=== PATIENT | female | born 2000 | race Caucasian/White ===

== ENCOUNTER → 2020-07-24 11:58 | Outpatient (CLI) | payer OTHER, SELFPAY ==
[2020-07-24 23:24] LABS: SARS-CoV-2 RNA PCR Negative
== END ==
PROVIDERS: PCP Pediatrics; Visit Provider Pediatrics
DX: R68.89 Other general symptoms and signs (principal); Z20.822 Contact with and (suspected) exposure to COVID-19
CPT/HCPCS: C9803; U0003; U0005

== ENCOUNTER → 2021-01-03 18:23 | Outpatient (CLI) | payer OTHER, SELFPAY ==
--- NOTE | ~2021-01-03 | XR_ITS ---
EXAMINATION: XR sacroiliac joints min 3V EXAM DATE: 01/03/2021 19:16 INDICATION: Pain for 3 weeks after falling downstairs. TECHNIQUE: Sacroiliac frontal, bilateral oblique projections. There are no prior studies for compari son. FINDINGS: Sacroiliac and hip joints are symmetric and without erosive change or sclerosis. Sacrum, sa croiliac joints, sacral arcuate lines are intact. There are no acute fractures identified. IMPRESSION: Unremarkable sacroiliac joint exam. Reviewed, dictated and finalized at location G.
== END ==
PROVIDERS: PCP Pediatrics; Visit Provider Pediatrics
DX: M53.3 Sacrococcygeal disorders, not elsewhere classified (principal)
CPT/HCPCS: 72202

== ENCOUNTER 2021-07-09 10:22 | Emergency (ER) | payer OTHER, SELFPAY ==
[2021-07-09 10:43] VITALS: BP 134/85; PULSE 98; RESP 18; TEMP 36.2; O2SAT 99
--- NOTE | 2021-07-09 11:00 | ED.URI ---
HPI - URI/Sore Throat General Chief Complaint: Upper Respiratory Infection Stated Complaint: Sinus History of Present Illness HPI Narrative: This is a 21 year old that comes in complaining of stuffiness for the past two day. According to patient she gets a sinus infection every year. Patient states she has started to take Mucinex DM and it is not working Related Data Home Medications Medication Instructions Recorded Confirmed levonorgestrel-ethinyl estrad 1 tablet DAILY 07/10/19 07/10/19 [Vienva] Allergies Allergy/AdvReac Type Severity Reaction Status Date / Time No Known Allergies Allergy Unknown Verified 07/10/19 10:19 Review of Systems Review of Systems: nasal stuffiness and pressure in the frontal nare All systems reviewed & are unremarkable except as noted in HPI and below PMFSH Past Medical History Medical History (Updated 07/09/21 @ 11:04 by Cristina Zavaleta, RAMON) Asthma Surgical History Surgical History (Updated 07/10/19 @ 10:50 by Loulou Mccauley, [employer]) Hx of tympanostomy tubes Family History Family History Father Family history of hypercholesterolemia Depression Hypertension Family history of alcoholism Social History Social History (Updated 07/10/19 @ 10:51 by Loulou Mccauley, [employer]) Smoking status: Never smoker Alcohol intake: never Substance use: never Gender identity (if verbalized by the patient): Female Comments At time as signature, I have reviewed and agree with nursing past medical, social, surgical and family history. Please see nursing chart for further information. There is no relevant family history pertinent to the presenting complaint. Exam Narrative: GENERAL:Well-appearing, well-nourished, and in no acute distress. HEAD:Normocephalic, EYES: PERRLA and EOMI. ENT: Nares clear, no rhinorrhea Mucous membranes moist. CHEST: Clear to auscultation. No respiratory distress. HEART: Regular rate and rhythm. Normal peripheral pulses. ABDOMEN: Soft, nontender, nondistended, normal active bowel sounds. EXTREMITIES: Normal range of motion. No edema. SKIN: Warm, dry, no rash. NEURO: No focal deficits. Alert and oriented x3. Course Course Level of Care: Express Care Visit Vital Signs Vital signs: Vital Signs Temperature 97.2 F L 07/09/21 10:43 Pulse Rate 98 07/09/21 10:43 Respiratory Rate 18 07/09/21 10:43 Blood Pressure 134/85 07/09/21 10:43 Pulse Oximetry 99 07/09/21 10:43 Temperature 97.2 F L 07/09/21 10:43 Pulse Rate 98 07/09/21 10:43 Respiratory Rate 18 07/09/21 10:43 Blood Pressure 134/85 07/09/21 10:43 Pulse Oximetry 99 07/09/21 10:43 MDM - URI/Sore Throat Differential Diagnosis Differential diagnosis: Likely upper respiratory infection, otitis media, sinusitis, viral infection, bronchitis, influenza and pharyngitis Discharge Plan Discharge Clinical Impression: Sinusitis Qualifiers: Sinusitis location: unspecified location Chronicity: acute Recurrence: recurrent Qualified Code(s): J01.91 - Acute recurrent sinusitis, unspecified Patient Disposition: Home, Self-Care Condition: Stable Instructions: Antibiotic Form, Rhinosinusitis (ED), Allergies (ED) Additional Instructions: Viral illness may last between 7-12days; antibiotic is NOT recommended at this time. Recommend antihistamine such as Benadryl at night time and Claritin/Zyrtec/Phyllis during the day Also, recommend symptomatic treatment includes: rest, fluids, and increase humidity of the air at home. Recommend Acetaminophen or nonsteroidal anti-inflammatory agents (NSAIDs) as directed in the bottle to reduce fever and/pain/headache. Avoid smoking/second-hand smoke. Limit visits to areas with large crowds. Please schedule a follow-up visit with your personal physician for further evaluation and treatment within 3-5days. Including recheck and discussion of your blood pressure. If yo
== END 2021-07-09 11:07 | disposition home or self-care (01) ==
PROVIDERS: Emergency Provider Nurse Practitioner Family; PCP Pediatrics
DX: J01.91 Acute recurrent sinusitis, unspecified (principal); J45.909 Unspecified asthma, uncomplicated
CPT/HCPCS: 99213; G0463

== ENCOUNTER 2022-02-05 17:15 | Emergency (ER) | payer OTHER, SELFPAY ==
[2022-02-05 17:27] VITALS: BP 119/72; PULSE 87; RESP 18; TEMP 36.4; O2SAT 99
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
== END 2022-02-05 18:03 | disposition home or self-care (01) ==
PROVIDERS: Emergency Provider Nurse Practitioner Family; PCP Pediatrics
DX: S16.1XXA Strain of muscle, fascia and tendon at neck level, initial encounter (principal); V43.52XA Car driver injured in collision with other type car in traffic accident, initial encounter; J45.909 Unspecified asthma, uncomplicated
CPT/HCPCS: 99212; G0463

== ENCOUNTER 2022-03-01 17:11 | Emergency (ER) | payer OTHER, SELFPAY ==
[2022-03-01 17:18] VITALS: BP 127/73; PULSE 91; RESP 16; TEMP 36.7; O2SAT 99
--- NOTE | 2022-03-01 17:21 | ED.URI ---
HPI - URI/Sore Throat General Chief Complaint: Upper Respiratory Infection Stated Complaint: congestion,headache,cough Time Seen by Provider: 03/01/22 17:21 History of Present Illness HPI Narrative: Melissa Main is a 21 yo female with PMH of asthma who comes to [facility] with complaints of sore throat resolved and cough, congestion x3 day. She has been complained at multiple visits about sinus symptoms and also has seen an ENT doctor (Sis) or his partner in the past 2 years, for her ears and in for sinus pain and drainage. Patient had original 2 [employer] vaccines Related Data Home Medications Medication Instructions Recorded Confirmed levonorgestrel-ethinyl estradiol 1 tablet DAILY 02/05/22 03/01/22 0.1 mg-20 mcg tablet (Vienva) Allergies Allergy/AdvReac Type Severity Reaction Status Date / Time No Known Allergies Allergy Unknown Verified 03/01/22 17:28 Review of Systems Review of Systems: CONSTITUTIONAL: Denies fever, chills, sweats. EYES: Denies visual changes, redness, discharge. ENT: Denies rhinorrhea, has congestion, sore throat, otalgia. CARDIOVASCULAR: Denies chest pain, palpitations, edema. RESPIRATORY: Denies dyspnea, wheezing, has cough GASTROINTESTINAL: Denies abdominal pain, nausea, vomiting, diarrhea. GENITOURINARY: Denies dysuria, hematuria, abnormal discharge SKIN: Denies rash or itching. NEUROLOGIC: Denies numbness, or focal weakness. PSYCHIATRIC: Denies anxiety or depression. [facility] Past Medical History Medical History Asthma Surgical History Surgical History Hx of tympanostomy tubes Family History Family History Father Family history of hypercholesterolemia Depression Hypertension Family history of alcoholism Social History Social History Smoking status: Never smoker Alcohol intake: never Substance use: never Gender identity (if verbalized by the patient): Female Comments At time of signature, I agree with nursing past medical, surgical, social and family history. There is no relevant family history pertinent to the presenting complaint. Exam Narrative: GENERAL: This is a well-nourished, well-developed patient, in mild distress. HEAD: normocephalic, atraumatic. EYES: Sclera clear/white. Vision is grossly intact. EARS: External ears normal, auditory canals clear and without drainage, TMs normal without perforation. Hearing grossly intact. NOSE: External nose normal without nasal discharge, nares without redness, no rhinorrhea. Mild ethmoid and upper maxilla tenderness THROAT: Mucous membranes moist, posterior pharynx erythema NECK: Neck supple, non-tender CARDIOVASCULAR: Regular rate and rhythm without murmurs, gallops, or rubs. RESPIRATORY: Clear to auscultation. Breath sounds equal bilaterally. No wheezes, rales, or rhonchi. GASTROINTESTINAL: Not done SKIN: warm, intact with no suspicious lesions or rash, good texture and turgor. NEURO: awake, alert, and oriented to person, place and time. There were no obvious focal neurologic abnormalities. Steady gait EXTREMITIES: Normal range of motion. BACK: Nontender without deformity Course Course Emergency Course: Patient comes with congestion, sinus pain x3 days; sore throat has resolved. Patient had original COVID vaccines. No boosters Strep test negative COVID test negative Started on prednisone and Phyllis, increase hydration Level of Care: Express Care Visit Vital Signs Vital signs: Vital Signs Temperature 98.0 F 03/01/22 17:18 Pulse Rate 91 03/01/22 17:18 Respiratory Rate 16 03/01/22 17:18 Blood Pressure 127/73 03/01/22 17:18 Pulse Oximetry 99 03/01/22 17:18 Oxygen Delivery Room Air 03/01/22 17:18 Temperature 98.0 F 03/01/22 17:18 Pulse Rate
== END 2022-03-01 18:00 | disposition home or self-care (01) ==
PROVIDERS: Emergency Provider Nurse Practitioner; PCP Pediatrics
DX: J01.21 Acute recurrent ethmoidal sinusitis (principal); J45.909 Unspecified asthma, uncomplicated; Z20.822 Contact with and (suspected) exposure to COVID-19
CPT/HCPCS: 87081; 87426; 87880; 99213; C9803; G0463

== ENCOUNTER 2022-05-01 14:14 | Emergency (ER) | payer OTHER, SELFPAY ==
[2022-05-01 14:22] VITALS: BP 124/85; PULSE 130; RESP 18; TEMP 36.8; O2SAT 100
--- NOTE | 2022-05-01 15:01 | ED.URI ---
HPI - URI/Sore Throat General Chief Complaint: Upper Respiratory Infection Stated Complaint: Headache,Cough,Sore Throat,Body Aches Time Seen by Provider: 05/01/22 14:55 Source: patient Mode of arrival: ambulatory Limitations: no limitations History of Present Illness HPI Narrative: Patient presents today complaining of headache, cough, sore throat, body aches, chills. Symptoms began this morning. Denies any shortness of breath or fever. She currently rates her pain 7/10 and has tried no [id number] treatment prior to arrival. Denies any history of asthma. She is a nonsmoker. Works at a [employer]. Related Data Home Medications Medication Instructions Recorded Confirmed levonorgestrel-ethinyl estradiol 1 tablet DAILY 02/05/22 05/01/22 0.1 mg-20 mcg tablet (Vienva) Allergies Allergy/AdvReac Type Severity Reaction Status Date / Time No Known Allergies Allergy Unknown Verified 05/01/22 14:34 Review of Systems Review of Systems: CONSTITUTIONAL: Denies fever, or sweats.+ body aches, chills EYES: Denies visual changes, redness, or discharge. ENT: Denies rhinorrhea, congestion, or otalgia.+ sore throat CARDIOVASCULAR: Denies chest pain, palpitations, or edema. RESPIRATORY: Denies dyspnea.+ cough GASTROINTESTINAL: Denies abdominal pain, nausea, vomiting, or diarrhea. GENITOURINARY: Denies dysuria or hematuria. SKIN: Denies rash, itching, or wounds. MUSCULOSKELETAL: Denies back pain, joint pain, or myalgia. NEUROLOGIC: Denies numbness, tingling, or weakness.+ headache PSYCH: Denies depression or anxiety. [facility] Past Medical History Medical History Asthma Surgical History Surgical History Hx of tympanostomy tubes Family History Family History Father Family history of hypercholesterolemia Depression Hypertension Family history of alcoholism Social History Social History Smoking status: Never smoker Alcohol intake: never Substance use: never Gender identity (if verbalized by the patient): Female Comments At time of signature, I have reviewed and agree with nursing past medical, surgical, social and family history unless otherwise noted. Please see nursing chart for further information. There is no relevant family history pertinent to the presenting complaint Exam Narrative: GENERAL: Mildly ill-appearing, well-nourished, and in no acute distress. HEAD: Normocephalic, atraumatic. EYES: EOMI. No redness or drainage. Conjunctivae normal. ENT: Mucous membranes pink and moist. Nares congested.. No rhinorrhea. TMs normal bilaterally. Throat mildly erythematous without edema or exudate. Small amount of postnasal drainage. Uvula midline. NECK: Normal AROM. Supple. No lymphadenopathy. CHEST: No respiratory distress. Clear to auscultation. HEART: Regular rate and rhythm. No murmur appreciated. Normal peripheral pulses. EXTREMITIES: Normal range of motion. No edema. SKIN: Warm, dry, no rash. Capillary refill normal. Normal skin turgor. NEURO: No focal deficits. Alert and oriented x3. Gait steady. PSYCH: Normal affect. No signs of depression or anxiety. Course Course Level of Care: Express Care Visit Vital Signs Vital signs: Vital Signs Temperature 98.2 F 05/01/22 14:22 Pulse Rate 130 H 05/01/22 14:22 Respiratory Rate 18 05/01/22 14:22 Blood Pressure 124/85 05/01/22 14:22 Pulse Oximetry 100 05/01/22 14:22 Oxygen Delivery Room Air 05/01/22 14:22 Temperature 98.2 F 05/01/22 14:22 Pulse Rate 130 H 05/01/22 14:22 Respiratory Rate 18 05/01/22 14:22 Blood Pressure 124/85 05/01/22 14:22 Pulse Oximetry 100 05/01/22 14:22 Oxygen Delivery Room Air 05/01/22 14:22 Reviewed. Pt has been instructed to follow
[2022-05-01 15:15] VITALS: PULSE 120
== END 2022-05-01 15:15 | disposition home or self-care (01) ==
PROVIDERS: Emergency Provider Nurse Practitioner; PCP Pediatrics
DX: J06.9 Acute upper respiratory infection, unspecified (principal); Z20.822 Contact with and (suspected) exposure to COVID-19; J45.909 Unspecified asthma, uncomplicated
CPT/HCPCS: 87081; 87426; 87804; 87880; 99213; C9803; G0463

== ENCOUNTER 2022-08-03 07:20 | Emergency (ER) | payer OTHER, SELFPAY ==
[2022-08-03 07:37] VITALS: BP 108/70; PULSE 91; RESP 18; TEMP 36.7; O2SAT 100
[2022-08-03] MEDS: SODIUM CHLORIDE 0.9% IV 1,000 ML 999 ML IV CONT (08:06)
[2022-08-03] MEDS: ONDANSETRON INJ 4 MG/2 ML VIAL IV PUSH (08:07)
[2022-08-03 08:15] LABS: Basophils Percent Auto 0.3 % (0.2-1.2); Eosinophils Absolute Auto 0.2 K/mm3 (0-0.3); Eosinophils Percent Auto 1.4 % (0-4.4); Hematocrit 43.6 % (37.0-47.0); Hemoglobin 14.1 g/dL (12.0-15.0); Immature Granulocyte Absolute 0.04 K/mm3 (0.00-0.031); Immature Granulocyte Percent A 0.4 % (0-0.5); Lymphocytes Absolute Auto 1.28 K/mm3 (0.9-3.2); Lymphocytes Percent Auto 11.5 % (18.3-44.2); Mean Corpuscular HGB Conc 32.3 g/dl (32-36); Mean Corpuscular Hemoglobin 25.4 pg (26-34); Mean Corpuscular Volume 78.6 fl (80-100); Mean Platelet Volume 10.3 fl (7.4-10.4); Monocytes Absolute Auto 0.8 K/mm3 (0.1-0.6); Monocytes Percent Auto 7.2 % (2.6-8.5); Neutrophils Absolute Auto 8.8 K/mm3 (1.3-6.7); Neutrophils Percent Auto 79.2 % (45.5-73.1); Platelet Count Result 242 k/mm3 (150-375); Red Blood Count 5.55 M/mm3 (4.2-5.4); White Blood Count 11.1 K/mm3 (4.5-10.0)
[2022-08-03 08:28] LABS: Alanine Aminotransferase 22 U/L (6-35); Albumin Level 4.8 g/dL (3.5-5.1); Alkaline Phosphatase 83 U/L (38-126); Anion Gap 8 mmol/L (8-16); Aspartate Amino Transferase 25 U/L (14-36); Bilirubin,Total 0.8 mg/dL (0.2-1.3); Blood Urea Nitrogen 11 mg/dL (7-17); Calcium 9.3 mg/dL (8.4-10.2); Carbon Dioxide 24 mmol/L (22-30); Chloride 104 mmol/L (98-107); Estimated CRCL calculation 121 ml/min; Estimated Glomerular Filt Rate > 60; Glucose 107 mg/dL (65-110); Lipase 55 U/L (23-300); Potassium 4.1 mmol/L (3.4-5.0); Sodium 136 mmol/L (137-145)
--- NOTE | 2022-08-03 09:06 | ED.NAVMDI ---
HPI - Nausea/Vomiting/Diarrhea General Chief complaint: Nausea/Vomiting/Diarrhea Stated complaint: Diarrhea, Weakness Time Seen by Provider: 08/03/22 07:31 History of Present Illness HPI Narrative: Patient is a 22-year-old female who presents ER with diarrhea. Woke up this morning had 2 episodes of diarrhea and 2 episodes of emesis. No pain in her abdomen. No fevers or chills or sweats. No loss of consciousness. Has persistent nausea at this time. 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 Patient did have some lightheadedness. Related Data Home Medications Medication Instructions Recorded Confirmed levonorgestrel-ethinyl estradiol 1 tablet DAILY 02/05/22 05/01/22 0.1 mg-20 mcg tablet (Vienva) Allergies Allergy/AdvReac Type Severity Reaction Status Date / Time No Known Allergies Allergy Unknown Verified 08/03/22 07:40 Review of Systems Review of Systems: All systems reviewed & are unremarkable except as noted in HPI and below Constitutional: Constitutional: Denies chills, Denies fatigue and Denies fever(s) Cardiovascular: Cardiovascular: Denies chest pain, Denies rapid heart rate and Denies radiating jaw, neck or arm pain Respiratory: Respiratory: Denies cough and Denies dyspnea Gastrointestinal: Gastrointestinal: Denies abdominal pain, Reports diarrhea, Reports nausea and Reports vomiting PMFSH Past Medical History Medical History Asthma Surgical History Surgical History Hx of tympanostomy tubes Family History Family History Father Family history of hypercholesterolemia Depression Hypertension Family history of alcoholism Social History Social History Smoking status: Never smoker Alcohol intake: never Substance use: never Living arrangements: with family Occupation/Education: occupation Gender identity (if verbalized by the patient): Female Exam Narrative: GENERAL: Well-appearing, well-nourished, and in no acute distress. HEAD: Normocephalic, atraumatic. CHEST: Clear to auscultation. No respiratory distress. HEART: Regular rate and rhythm. Normal peripheral pulses. ABDOMEN: Soft, nontender, nondistended. EXTREMITIES: Normal range of motion. No edema. SKIN: Warm, dry, no rash. NEURO: Alert and oriented x3. PSYCH: Normal mood and affect. Course Course Emergency Course: Patient resting comfortably. Abdomen soft nontender. Lab work reassuring, white count 11.1 which is nonspecific. Tolerating oral fluids and nausea is gone. Vital Signs Vital signs: Vital Signs Temperature 98.1 F 08/03/22 07:37 Pulse Rate 91 08/03/22 07:37 Respiratory Rate 18 08/03/22 07:37 Blood Pressure 108/70 08/03/22 07:37 Pulse Oximetry 100 08/03/22 07:37 Oxygen Delivery Room Air 08/03/22 07:37 Temperature 98.1 F 08/03/22 07:37 Pulse Rate 91 08/03/22 07:37 Respiratory Rate 18 08/03/22 07:37 Blood Pressure 108/70 08/03/22 07:37 Pulse Oximetry 100 08/03/22 07:37 Oxygen Delivery Room Air 08/03/22 07:37 MDM - Nausea/Vomiting/Diarrhea Lab Data 08/03/22 08:08 08/03/22 08:08 Labs: Lab Results 08/03/22 08/03/22 Range/Units 08:08 08:08 WBC 11.1 H (4.5-10.0) K/mm3 RBC 5.55 H (4.2-5.4) M/mm3 Hgb 14.1 (12.0-15.0) g/dL Hct 43.6 (37.0-47.0) % MCV 78.6 L (80-100) fl MCH 25.4 L (26-34) pg MCHC 32.3 (32-36) g/dl RDW 14.0 (11.5-14.5) % Plt Count 242 (150-375) k/mm3 MPV 10.3 (7.4-10.4) fl Immature Gran % (Auto) 0.4 (0-0.5) % Neut % (Auto) 79.2 H (45.5-73.1) % Lymph % (Auto) 11.5 L (18.3-44.2) % Randolph % (Auto) 7.2 (2.6-8.5) % Eos % (Auto) 1.4 (0-4.4) % Baso % (Auto) 0.3 (0.2-1.2) % Lymph # (Auto) 1.28 (0
[2022-08-03 09:22] VITALS: BP 121/76; PULSE 79; RESP 15; O2SAT 100
== END 2022-08-03 09:24 | disposition home or self-care (01) ==
PROVIDERS: Emergency Provider Emergency Medicine; PCP Pediatrics
DX: K52.9 Noninfective gastroenteritis and colitis, unspecified (principal); J45.909 Unspecified asthma, uncomplicated
CPT/HCPCS: 36415; 80053; 81025; 83690; 85025; 96361; 96374; 99284; J2405; J7030

== ENCOUNTER 2023-07-01 15:02 | Emergency (ER) | payer OTHER, SELFPAY ==
[2023-07-01 15:26] VITALS: BP 129/78; PULSE 94; RESP 18; TEMP 36.4; O2SAT 100
--- NOTE | 2023-07-01 15:33 | ED.URI ---
HPI - URI/Sore Throat General Chief Complaint: Upper Respiratory Infection Stated Complaint: nasal congestion,headache,cough Source: patient, RN notes reviewed and old records reviewed Mode of arrival: ambulatory Limitations: no limitations History of Present Illness HPI Narrative: 23-year-old female presents to [facility] with complaint of cough, headache, congestion this started late Friday night. Patient states took home COVID test at work today it was positive, but boss wanted a retest to verify. Patient denies chest pain, shortness of breath, dizziness, weakness. MD elicited complaint: cough and nasal congestion Onset (ago): day(s) (2) Consistency: constant Severity: moderate Related Data Home Medications Medication Instructions Recorded Confirmed levonorgestrel-ethinyl estradiol 1 tablet DAILY 02/05/22 07/01/23 0.1 mg-20 mcg tablet (Vienva) Allergies Allergy/AdvReac Type Severity Reaction Status Date / Time No Known Allergies Allergy Unknown Verified 07/01/23 15:22 Review of Systems Constitutional: Constitutional: Reports no additional constitutional complaints, Reports body ache(s), Denies chills, Denies fatigue, Denies fever(s) and Denies headache(s) Eyes: Eyes: Reports no additional eye complaints and Denies blurry vision ENT: Reports system reviewed and no additional complaints, except as documented, Denies vertigo, Denies dizziness, Denies ear discharge, Denies otalgia, Denies facial pain, Reports headache(s), Reports nasal congestion, Denies nasal discharge, Denies sinus pain, Reports sinus pressure and Denies sore throat Cardiovascular: Cardiovascular: Reports no additional cardiovascular complaints, Denies chest pain, Denies chest pain at rest, Denies rapid heart rate and Denies dyspnea Respiratory: Respiratory: Reports no additional respiratory complaints, Denies chest congestion, Reports cough, Denies pain on inspiration, Denies pain with cough and Denies dyspnea Gastrointestinal: Gastrointestinal: Denies abdominal pain, Denies diarrhea, Denies nausea and Denies vomiting Integumentary/Breasts: Skin/Breast: Denies rash Neurologic: Reports system reviewed and no additional complaints, except as documented, Denies vertigo, Denies dizziness and Denies headache(s) Endocrine: Endocrine: Denies fatigue PMFSH Past Medical History Medical History Asthma Surgical History Surgical History Hx of tympanostomy tubes Family History Family History Father Family history of hypercholesterolemia Depression Hypertension Family history of alcoholism Social History Social History Smoking status: Never smoker Alcohol intake: never Substance use: never Living arrangements: with family Occupation/Education: occupation Gender identity (if verbalized by the patient): Female Comments At the time of my signature, I reviewed and agree with the nursing past medical, surgical, social, and family history. There is no relevant family history pertinent to the patient complaint. Exam Const: General: cooperative, healthy appearing, no acute distress and well nourished Nutritional Appearance: well nourished Orientation/consciousness: patient oriented x3 Limitations: no limitations HENMT: Head: normal to inspection and normocephalic Ears: external ears normal, TM's normal bilaterally, mastoids normal and Abnormal EAC present Face/Nose/Sinus: normal facial exam Face and sinus: normal facial exam Mouth: Yes Normal oral and palatal mucosa present, Yes oropharynx normal and Yes moist mucous membranes Throat: posterior oropharynx normal, tonsils normal, uvula midline and no uvular edema Eyes: General: appearance normal, both eyes and all related structures Sclera: sclerae margareth
== END 2023-07-01 15:38 | disposition home or self-care (01) ==
PROVIDERS: Emergency Provider Registered Nurse
DX: U07.1 COVID-19 (principal); J45.909 Unspecified asthma, uncomplicated
CPT/HCPCS: 87426; 99213; G0463

== ENCOUNTER 2023-09-28 10:14 | Emergency (ER) | payer OTHER, SELFPAY ==
--- NOTE | ~2023-09-28 | XR_ITS ---
EXAMINATION: XR ankle RT min 3V DATE: 09/28/2023 10:44 INDICATION: Twisting right ankle injury with lateral sided swelling TECHNIQUE: Anteroposterior, oblique, mortise, and lateral views of the right ankle were obtained. COMPARISON: None. FINDINGS: Alignment is normal. No fracture. Joint spaces are well maintained. No ankle joint effusion. The so ft tissues are unremarkable. IMPRESSION: 1. Negative right ankle radiographs. Reviewed, dictated and finalized at location A.
--- NOTE | 2023-09-28 10:23 | ED.LOWEXIN ---
HPI - Extremity Injury (Lower) General Chief Complaint: Extremity Injury, Lower Stated Complaint: lower rt extremity injury Time Seen by Provider: 09/28/23 10:23 Source: patient Mode of arrival: ambulatory Limitations: no limitations History of Present Illness HPI Narrative: 23-year-old female presents with complaint of pain and swelling to lateral aspect of right ankle. Yesterday while walking in the grass twisted right ankle in a hole and fell. Was able to get up on her own. Ambulatory with slight limp. States she has elevated, applied ice and taking ibuprofen. Wants to make sure she does not have fracture. Distal neurovascularly intact. All systems reviewed and negative except as noted above. Related Data Home Medications Medication Instructions Recorded Confirmed levonorgestrel 17.5 mcg/24 hrs 1 device intrauterine ONCE 09/28/23 09/28/23 (5yrs) 19.5mg intrauterine device (Kyleena) Allergies Allergy/AdvReac Type Severity Reaction Status Date / Time No Known Allergies Allergy Unknown Verified 09/28/23 10:31 Review of Systems Review of Systems: CONSTITUTIONAL: Denies fever, chills, or sweats. EYES: Denies visual changes, redness, or discharge. ENT: Denies rhinorrhea, congestion, sore throat, or otalgia. CARDIOVASCULAR: Denies chest pain, palpitations, or edema. RESPIRATORY: Denies cough or dyspnea. GASTROINTESTINAL: Denies abdominal pain, nausea, vomiting, or diarrhea. GENITOURINARY: Denies dysuria or hematuria. SKIN: Denies rash or itching. MUSCULOSKELETAL: Reports pain and swelling to right ankle. NEUROLOGIC: Denies headache, numbness, or weakness. PSYCHIATRIC: Denies anxiety or depression. All other systems reviewed are negative, except as documented in HPI. [facility] Past Medical History Medical History Asthma Surgical History Surgical History Hx of tympanostomy tubes Family History Family History Father Family history of hypercholesterolemia Depression Hypertension Family history of alcoholism Social History Social History Smoking status: Never smoker Alcohol intake: never Substance use: never Living arrangements: with family Occupation/Education: occupation Gender identity (if verbalized by the patient): Female Comments At time of signature, agree with nursing past medical, surgical, social and family history. There is no relevant family history pertinent to the presenting complaint. Exam Narrative: GENERAL: This is a well-nourished, well-developed patient, in no apparent distress. HEAD: normocephalic, atraumatic. EYES: PERRL. Sclera clear/white. Vision is grossly intact. EARS: External ears normal NOSE: External nose normal NECK: Neck supple, non-tender without lymphadenopathy, masses or thyromegaly. CARDIOVASCULAR: Regular rate and rhythm without murmurs, gallops, or rubs. RESPIRATORY: Clear to auscultation. Breath sounds equal bilaterally. No wheezes, rales, or rhonchi. SKIN: warm, Dry, intact with no suspicious lesions or rash, good texture and turgor. NEURO: awake, alert, and oriented to person, place and time. There were no obvious focal neurologic abnormalities. EXTREMITIES: mild swelling to lateral aspect of R ankle, tender on palpation of ATLF. ROM and distal NV intact. Course Course Level of Care: Express Care Visit Vital Signs Vital signs: Reviewed MDM - Extremity Injury (Lower) MDM Narrative Medical decision making narrative: discussed x-ray results with patient. Patient placed in Umberto wrap. Recommend rice. Follow up with primary care physician if pain not improving. Patient is aware of diagnosis, understands and agrees to treatment plan. Anticipatory guidance given. Patient agrees to follow-up a
[2023-09-28 10:29] VITALS: BP 128/73; PULSE 82; RESP 18; TEMP 36.7; O2SAT 100
[2023-09-28 10:31] VITALS: BP 128/73; PULSE 82; RESP 18; TEMP 36.7; O2SAT 100
== END 2023-09-28 11:22 | disposition home or self-care (01) ==
PROVIDERS: Emergency Provider Nurse Practitioner Family
DX: S93.401A Sprain of unspecified ligament of right ankle, initial encounter (principal); X50.9XXA Other and unspecified overexertion or strenuous movements or postures, initial encounter; J45.909 Unspecified asthma, uncomplicated
CPT/HCPCS: 73610; 99213; G0463

== ENCOUNTER 2023-10-21 19:55 | Emergency (ER) | payer OTHER, SELFPAY ==
[2023-10-21 19:57] VITALS: BP 135/85; PULSE 89; RESP 16; TEMP 36.4; O2SAT 100
[2023-10-21 20:30] LABS: Basophils Percent Auto 0.5 % (0.2-1.2); Eosinophils Absolute Auto 0.1 K/mm3 (0-0.3); Eosinophils Percent Auto 1.6 % (0-4.4); Hematocrit 43.7 % (37.0-47.0); Hemoglobin 14.2 g/dL (12.0-15.0); Immature Granulocyte Absolute 0.02 K/mm3 (0.00-0.031); Immature Granulocyte Percent A 0.2 % (0-0.5); Lymphocytes Absolute Auto 2.99 K/mm3 (0.9-3.2); Lymphocytes Percent Auto 35.8 % (18.3-44.2); Mean Corpuscular HGB Conc 32.5 g/dl (32-36); Mean Corpuscular Hemoglobin 25.1 pg (26-34); Mean Corpuscular Volume 77.3 fl (80-100); Mean Platelet Volume 10.5 fl (7.4-10.4); Monocytes Absolute Auto 0.6 K/mm3 (0.1-0.6); Monocytes Percent Auto 7.4 % (2.6-8.5); Neutrophils Absolute Auto 4.6 K/mm3 (1.3-6.7); Neutrophils Percent Auto 54.5 % (45.5-73.1); Platelet Count Result 208 k/mm3 (150-375); Red Blood Count 5.65 M/mm3 (4.2-5.4); Red Cell Distribution Width 15.1 % (11.5-14.5); White Blood Count 8.4 K/mm3 (4.5-10.0)
[2023-10-21 20:40] LABS: Alanine Aminotransferase 19 U/L (6-35); Albumin Level 4.5 g/dL (3.5-5.1); Alkaline Phosphatase 70 U/L (38-126); Anion Gap 9 mmol/L (4-12); Aspartate Amino Transferase 22 U/L (14-36); Bilirubin,Total 0.6 mg/dL (0.2-1.3); Blood Urea Nitrogen 12 mg/dL (7-17); Calcium 9.2 mg/dL (8.4-10.2); Carbon Dioxide 24 mmol/L (22-30); Chloride 105 mmol/L (98-107); Estimated CRCL calculation 124 ml/min; Estimated Glomerular Filt Rate > 60; Glucose 99 mg/dL (65-110); Lipase 77 U/L (23-300); Sodium 138 mmol/L (137-145)
[2023-10-21 23:24] VITALS: BP 130/78; PULSE 89; RESP 18; O2SAT 100
[2023-10-21 23:43] LABS: Appearance Urine Clear (Clear); Bacteria Urine None Seen /hpf; Bilirubin Urine Negative (Negative); Blood Urine Negative (Negative); Color Urine Yellow (Yellow); Glucose Urine UA Negative (Negative); Ketones Urine Trace mg/dL (Negative); Leukocyte Esterase Ur Trace LEU/UL (Negative); Nitrate Urine Negative (Negative); Non Pathogenic Casts 0-2; Protein Urine Negative (Negative); RBC Urine 0-2 /hpf (0-2); Specific Grav Ur 1.026 (1.001-1.035); Squamous Epithelial Cell Urine Occasional /hpf (Few)
[2023-10-21 23:46] LABS: Add Urine Microscopic? YES
--- NOTE | 2023-10-22 00:13 | ED.GENADULT ---
HPI - General Adult General Chief complaint: Abdominal Pain Stated complaint: abdominal pain radiating to back Time Seen by Provider: 10/22/23 00:00 History of Present Illness HPI narrative: this is a 23-year-old female presenting with abdominal pain. The patient had a home eating a burrito and then developed sharp pain that moved throughout her abdomen. It has been rapidly improving and she is currently pain-free. Patient said that the pain improved with belching and passing gas. She has not had a bowel movement. Patient denies fevers chills nausea vomiting diarrhea. No urinary symptoms. Related Data Home Medications Medication Instructions Recorded Confirmed levonorgestrel 17.5 mcg/24 hr (up 1 device intrauterine ONCE 09/28/23 09/28/23 to 5 yrs) 19.5mg intrauterine device (Kyleena) Allergies Allergy/AdvReac Type Severity Reaction Status Date / Time No Known Allergies Allergy Unknown Verified 09/28/23 10:31 [facility] Past Medical History Medical History Asthma Surgical History Surgical History Hx of tympanostomy tubes Family History Family History Father Family history of hypercholesterolemia Depression Hypertension Family history of alcoholism Social History Social History Smoking status: Never smoker Alcohol intake: never Substance use: never Living arrangements: with family Occupation/Education: occupation Gender identity (if verbalized by the patient): Female Exam Narrative: APPEARANCE: No apparent distress. Head: atraumatic. EYES: EOMI, NOSE: Atraumatic NECK: Trachea midline RESPIRATORY: No increased rate of breathing, CTAB CARDIOVASCULAR: RRR, ABDOMINAL: Non-distended, soft nontender no guarding or rebound MUSCULOSKELETAl: No obvious deformities NEURO: Alert. Moving 4/4 extremities SKIN:: Warm, dry. Normal color PSYCHIATRIC: Normal affect Course Vital Signs Vital signs: Vital Signs Temperature 97.6 F 10/21/23 19:57 Pulse Rate 89 10/21/23 19:57 Respiratory Rate 16 10/21/23 19:57 Blood Pressure 135/85 10/21/23 19:57 Pulse Oximetry 100 10/21/23 19:57 Oxygen Delivery Room Air 10/21/23 19:57 Temperature 97.6 F 10/21/23 19:57 Pulse Rate 89 10/21/23 23:24 Respiratory Rate 18 10/21/23 23:24 Blood Pressure 130/78 10/21/23 23:24 Pulse Oximetry 100 10/21/23 23:24 Oxygen Delivery Room Air 10/21/23 19:57 Medical Decision Making MDM Narrative Medical decision making narrative: -Course: 23 year female presenting with 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 Her symptoms have been rapidly resolving and she is currently pain free. on my exam her abdominal exam is benign. Her vital signs are stable. Labs wnl. Patient be discharged with a prescription for dicyclomine and return precautions. -DDX includes but is not limited to: Gastroenteritis, gas pains, ovarian cyst appendicitis colitis kidney stone -Independent interpretation of studies: labs reviewed -Interventions: dicyclomine -Shared decision making / Disposition:discharged. Vital Signs Vital Signs: Vital Signs Temperature 97.6 F 10/21/23 19:57 Pulse Rate 89 10/21/23 19:57 Respiratory Rate 16 10/21/23 19:57 Blood Pressure 135/85 10/21/23 19:57 Pulse Oximetry 100 10/21/23 19:57 Oxygen Delivery Room Air 10/21/23 19:57 Temperature 97.6 F 10/21/23 19:57 Pulse Rate 89 10/21/23 23:24 Respiratory Rate 18 10/21/23 23:24 Blood Pressure 130/78 10/21/23 23:24 Pulse Oximetry 100 10/21/23 23:24 Oxygen Delivery Room Air 10/21/23 19:57 Lab Data 10/21/23 20:24 10/21/23 20:24 Labs: Lab Results 10/21/23 10/21/23 Range/Units 20:24 23:22 WBC 8.4 (4.5-10.0) K/mm3
[2023-10-22] MEDS: DICYCLOMINE HCL 10 MG CAPSULE 20 MG PO (00:22)
[2023-10-22 00:24] VITALS: BP 137/89; PULSE 93; RESP 17; O2SAT 100
== END 2023-10-22 00:25 | disposition home or self-care (01) ==
PROVIDERS: Emergency Provider Emergency Medicine
DX: R14.1 Gas pain (principal); J45.909 Unspecified asthma, uncomplicated
CPT/HCPCS: 36415; 80053; 81001; 81025; 83690; 85025; 87086; 87088; 99283; A9270

== ENCOUNTER 2024-06-14 10:11 | Emergency (ER) | payer OTHER, SELFPAY ==
[2024-06-14 10:35] VITALS: BP 133/75; PULSE 91; RESP 18; TEMP 37.1; O2SAT 99
--- NOTE | 2024-06-14 10:37 | ED_ITS ---
HPI - URI/Sore Throat General Chief Complaint: Upper Respiratory Infection Stated Complaint: cold symptoms Time Seen by Provider: 06/14/24 10:37 Source: patient Mode of arrival: ambulatory Limitations: no limitations History of Present Illness HPI Narrative: Melissa is a 24-year-old male patient presenting to the clinic today with complaints of nasal congestion, cough, sore throat, and headache. She reports symptoms started 2 days ago. She works at a local daycare. Has had influenza and strep going around the daycare. MD elicited complaint: sore throat and nasal congestion Related Data Home Medications ?Medication ?Instructions ?Recorded ?Confirmed ?Last Taken ?Type levonorgestrel 17.5 mcg/24 hr (up 1 device intrauterine ONCE 09/28/23 09/28/23 Unknown History to 5 yrs) 19.5mg intrauterine device (Kyleena) Allergies Allergy/AdvReac Type Severity Reaction Status Date / Time No Known Allergies Allergy Unknown Verified 06/14/24 10:50 Review of Systems Review of Systems: Pertinent positives per HPI. Patient denies any fever, chills, rash, visual changes, dizziness, shortness of breath, chest pain, palpitations, nausea, vomiting, diarrhea, constipation, abdominal pain, or any urinary issues. [facility] Past Medical History Medical History Asthma Surgical History Surgical History Hx of tympanostomy tubes Family History Family History Father Family history of hypercholesterolemia Depression Hypertension Family history of alcoholism Social History Social History Smoking status: Never smoker Alcohol intake: never Substance use: never Living arrangements: with family Occupation/Education: occupation Gender identity (if verbalized by the patient): Female Comments At the time of my signature, I reviewed and agree with the nursing past medical, surgical, social, and family history. There is no relevant family history pertinent to the patient complaint. Exam Narrative: General: Well-developed, well nourished, in no apparent distress Head: Normocephalic, atraumatic Eyes: Pupils equally round and reactive to light bilaterally, EOM intact, sclera and conjunctive clear, no discharge, lids normal Ears: TMs intact and clear, ear canals clear, no drainage, grossly hearing normal. Nose: Nares patent, clear nasal discharge, mild inflammation, no sinus tenderness. Mouth: Oral pharynx red without lesions or masses, good dentition, MMM. Neck: Supple, trachea midline, no enlargement of anterior or posterior cervical nodes, no thyroid masses or goiter palpable. Cardio: Regular rate and rhythm, s1 and s2 normal, no murmur appreciated. Resp: Clear to auscultation bilaterally, no rhonchi, rales, wheezing or rubs Course Course Emergency Course: Portions of this record may have been created with voice recognition software. Level of Care: Express Care Visit Vital Signs Vital signs: Vital Signs Temperature 37.1 C 06/14/24 10:35 Pulse Rate 91 06/14/24 10:35 Respiratory Rate 18 06/14/24 10:35 Blood Pressure 133/75 06/14/24 10:35 Pulse Oximetry 99 06/14/24 10:35 Oxygen Delivery Room Air 06/14/24 10:35 Temperature 37.1 C 06/14/24 10:35 Pulse Rate 91 06/14/24 10:35 Respiratory Rate 18 06/14/24 10:35 Blood Pressure 133/75 06/14/24 10:35 Pulse Oximetry 99 06/14/24 10:35 Oxygen Delivery Room Air 06/14/24 10:35 Vital signs reviewed MDM - URI/Sore Throat MDM Narrative Medical decision making narrative: At the time of visit patient is resting comfortably on the exam table. Patient appears to be nontoxic. Labs: COVID, influenza, and strep test were all performed at the clinic today. All testing was negative. We will send strep for culture. Plan: I suspect patient has URI/pharyngitis/viral syndrome. Supportive measures were discussed with the patient and they voiced understanding discharge instructions and agrees to treatment plan. Return precautions reviewed Differential Diagnosis Differential diagnosis: Likely upper respiratory infection, otitis media, sinusitis, viral infection, bronchitis, influenza, pharyngitis and other (COVID) Discharge Plan Discharge Clinical Impression: Viral infection Upper respiratory infection Qualifiers: URI type: unspecified URI Qualified Code(s): J06.9 - Acute upper respiratory infection, unspecified Pharyngitis Qualifiers: Pharyngitis/tonsillitis etiology: unspecified etiology Qualified Code(s): J02.9 - Acute pharyngitis, unspecified Patient Disposition: Home, Self-Care Condition: Stable Instructions: Antibiotic Form, Pharyngitis (ED), Viral Syndrome (ED), Cold Symptoms (ED) Additional Instructions: COVID, influenza, and strep test were all negative in the clinic today. We will send strep for culture if this comes back positive we will contact you in place you on antibiotics at that time. May take DayQuil/NyQuil for cold/flu symptoms Increase fluids and stay well hydrated Tylenol/motrin for pain/fever Flonase and OTC antihistamines as directed Vicks vapor rub to open sinuses Sinus rinses for congestion Cepacol spray, cough drops, throat lozenges, warm tea with honey/lemon, gargle salt water to soothe throat BRAT diet for diarrhea Clear liquids x 24 hours then advance as tolerated for nausea/vomiting Go to the ED if you develop a worsening in your condition- high fever not controlled by Tylenol or Motrin, dehydration, weakness, lethargy, shortness of breath, or chest pain. Follow up with your PCP in 3-5 days if symptoms persist. Patient Language: New Zealander Prescriptions: No Action Kyleena 17.5 mcg/24 hrs (5 yrs) 19.5 mg Intrauterine Device 1 device INTRAUTERINE ONCE Rx Instructions: as a single dose Follow-up/Referrals: PHYSICIAN,FRESH WORK INSPECTOR [Primary Care Provider] - Time of Disposition: 11:05 Quality NIHSS Nursing Documentation ED NIHSS nursing documentation: reviewed/agree
[2024-06-14 11:10] LABS: EDCOVIDSCREEN Negative (Negative); EDINFLUASCREEN Negative (Negative); EDINFLUBSCREEN Negative (Negative)
[2024-06-14 11:10] LABS: EDSTREPNEGPOS1 Negative (Negative)
== END 2024-06-14 11:08 | disposition home or self-care (01) ==
PROVIDERS: Emergency Provider Nurse Practitioner Family; Referring Provider Emergency Medicine
DX: B34.9 Viral infection, unspecified (principal); J06.9 Acute upper respiratory infection, unspecified; J02.9 Acute pharyngitis, unspecified; Z20.822 Contact with and (suspected) exposure to COVID-19; J45.909 Unspecified asthma, uncomplicated
CPT/HCPCS: 87081; 87426; 87804; 87880; 99213; G0463

== ENCOUNTER 2024-07-07 09:57 | Emergency (ER) | payer OTHER, SELFPAY ==
[2024-07-07 10:21] VITALS: BP 123/74; PULSE 76; RESP 18; TEMP 36.6; O2SAT 99
--- NOTE | 2024-07-07 10:27 | ED_ITS ---
HPI - URI/Sore Throat General Chief Complaint: Upper Respiratory Infection Stated Complaint: cold symptoms Time Seen by Provider: 07/07/24 10:27 Source: patient Mode of arrival: ambulatory Limitations: no limitations History of Present Illness HPI Narrative: 24-year-old female presents with complaint of nasal congestion, sinus pressure for the past 3 weeks. Afebrile. Patient states she was seen here in May and was told symptoms viral. Since then has been taking [id number] DayQuil NyQuil cold and flu without relief of symptoms. Afebrile. No chest pain or shortness of breath. All systems reviewed and negative except as noted above. Related Data Home Medications ?Medication ?Instructions ?Recorded ?Confirmed ?Last Taken ?Type levonorgestrel 17.5 mcg/24 hr (up 1 device intrauterine ONCE 09/28/23 09/28/23 Unknown History to 5 yrs) 19.5mg intrauterine device (Kyleena) Allergies Allergy/AdvReac Type Severity Reaction Status Date / Time No Known Allergies Allergy Unknown Verified 07/07/24 10:22 Review of Systems Review of Systems: CONSTITUTIONAL: Denies fever, chills, or sweats. reports fatigue. EYES: Denies visual changes, redness, or discharge. ENT: Reports rhinorrhea, congestion, sinus pressure, sinus headaches. Denies sore throat, or otalgia. CARDIOVASCULAR: Denies chest pain, palpitations, or edema. RESPIRATORY: Reports cough. Denies dyspnea. GASTROINTESTINAL: Denies abdominal pain, nausea, vomiting, or diarrhea. GENITOURINARY: Denies dysuria or hematuria. SKIN: Denies rash or itching. MUSCULOSKELETAL: Denies back pain, joint pain, or myalgia. NEUROLOGIC: Denies headache, numbness, or weakness. PSYCHIATRIC: Denies anxiety or depression. All other systems reviewed are negative, except as documented in HPI. [facility] Past Medical History Medical History Asthma Surgical History Surgical History Hx of tympanostomy tubes Family History Family History Father Family history of hypercholesterolemia Depression Hypertension Family history of alcoholism Social History Social History Smoking status: Never smoker Alcohol intake: never Substance use: never Living arrangements: with family Occupation/Education: occupation Gender identity (if verbalized by the patient): Female Comments At time of signature, agree with nursing past medical, surgical, social and family history. There is no relevant family history pertinent to the presenting complaint. Exam Narrative: GENERAL: This is a well-nourished, well-developed patient, ill-appearing but no acute distress HEAD: normocephalic, atraumatic. EYES: PERRL. Sclera clear/white. Vision is grossly intact. EARS: External ears normal, auditory canals clear and without drainage, TMs normal without perforation. Hearing grossly intact. NOSE: External nose normal with moderate congestion, purulent nasal drainage, maxillary sinus tenderness on palpation. THROAT: Mucous membranes moist, Erythema postnasal drainage NECK: Neck supple, non-tender without lymphadenopathy, masses or thyromegaly. CARDIOVASCULAR: Regular rate and rhythm without murmurs, gallops, or rubs. RESPIRATORY: Clear to auscultation. Breath sounds equal bilaterally. No wheezes, rales, or rhonchi. SKIN: warm, Dry, intact with no suspicious lesions or rash, good texture and turgor. NEURO: awake, alert, and oriented to person, place and time. There were no obvious focal neurologic abnormalities. EXTREMITIES: No joint tenderness, effusion, or edema noted. No calf tenderness. Negative Homans sign bilaterally. BACK: Nontender without deformity. No CVA tenderness. Course Course Level of Care: Express Care Visit Vital Signs Vital signs: Vital Signs Temperature 36.6 C 07/07/24 10:21 Pulse Rate 76 07/07/24 10:21 Respiratory Rate 18 07/07/24 10:21 Blood Pressure 123/74 07/07/24 10:21 Pulse Oximetry 99 07/07/24 10:21 Temperature 36.6 C 07/07/24 10:21 Pulse Rate 76 07/07/24 10:21 Respiratory Rate 18 07/07/24 10:21 Blood Pressure 123/74 07/07/24 10:21 Pulse Oximetry 99 07/07/24 10:21 reviewed MDM - URI/Sore Throat MDM Narrative Medical decision making narrative: will treat patient for bacterial sinusitis due to duration of symptoms and exam findings. Patient well-appearing, nontoxic. Patient agrees with plan of care. Patient is aware of diagnosis, understands and agrees to treatment plan. Anticipatory guidance given. Patient agrees to follow-up as directed and is aware of reasons to seek care at the emergency department. Portions of this record may have been created with voice recognition software Differential Diagnosis Differential diagnosis: Likely upper respiratory infection, sinusitis, viral infection and influenza Discharge Plan Discharge Clinical Impression: Acute bacterial sinusitis Patient Disposition: Home, Self-Care Condition: Stable Instructions: Antibiotic Form, Sinusitis (ED) Additional Instructions: take medications as prescribed. Take an ygxj-oas-nobwolb antihistamine daily such as Claritin or Zyrtec. Use an lhba-ktv-xwcayfv nasal spray daily such as Flonase or Nasacort. Drink at least 64 oz of water a day. Place cool mist humidifier in bedroom where you sleep. Follow-up with your primary care physician if symptoms are not improving. Patient Language: Jordanian Prescriptions: New benzonatate 200 mg capsule 200 mg PO TID PRN (Reason: cough) Qty: 20 0RF methylprednisolone [Medrol (Daniel)] 4 mg tablets,dose pack See Rx Instructions PO .COMPLEX Qty: 21 0RF Rx Instructions: orally per package directions amoxicillin-pot clavulanate 875-125 mg tablet 1 tablet PO Q12H 7 Days Qty: 14 0RF No Action Kyleena 17.5 mcg/24 hrs (5 yrs) 19.5 mg Intrauterine Device 1 device INTRAUTERINE ONCE Rx Instructions: as a single dose Follow-up/Referrals: PHYSICIAN,ANALYTICAL RESEARCH PROGRAM MANAGER [Primary Care Provider] - Time of Disposition: 10:32
--- OUTSIDE RECORDS SUMMARY | 2024-07-08 22:55 | XMS_ITS | Clinical Summary ---
Author Organization [facility] Address [address] [place] [address] Care Team Providers Care Show Card Writer Name Role Phone Ebony Rawls MD Primary Care Provider + Allergies No known active allergies Medications BLISOVI FE 1.5, 28, 1.5 mg-30 mcg (21)/75 mg (7) per tablet TK 1 T PO QD 4 8 Active clobetasoL (TEMOVATE) 0.05 % external solutionIndicat ions:Dermatosis of the Scalp Apply topically up to two times a day as needed for itchy rash on scalp. 50 mL 6 0 Active Active Problems Problem Noted Date Diagnosed Date Dizziness 03/19/2019 ADHD 12/12/2017 Elevated triglycerides with high cholesterol Cross-eye 09/19/2010 Immunizations Name Administration Dates Next Due DTaP 10/23/2005, 2,2000, 1,2000 Hep A, Pediatric 11/06/2011 Hep A, Unspecified 01/12/2018 Hep B / HiB 04/28/2001,2000,2000 IPV 10/23/2005, 1,2000, 1 MMR 10/23/2005,04/28/2001 Meningococcal Conjugate (Menveo) 01/12/2018 Meningococcal MCV4P (Menactra) 11/06/2011 Pneumococcal Conjugate PCV 13 04/28/2001, 001,2000 Pneumococcal Polysaccharide PPV23 2000 Tdap 11/06/2011 Varicella 11/06/2011,04/28/2001 Surgical History Surgery Date Site/Laterality Comments STRABISMUS SURGERY Family History Medical History Relation Name Comments Hypertension Father Hypertension Father's Brother Hypertension Paternal Grandfather Relation Name Status Comments Father Father's Brother Paternal Grandfather Social History Tobacco Use Types Packs/Day Years Used Date Smoking Tobacco: Never Smokeless Tobacco: Never Personal Safety Answer Date Recorded Getting School Help Needed Not on file 08/29 Comments Unknown Sex and Gender Information Value Date Recorded Sex Assigned at Not on file 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 Gender Identity Not on file Sexual Orientation Not on file Obstetrics History Last Filed Vital Signs Vital Sign Reading Time Taken Comments Blood Pressure 115/79 03/19/2019 8:19 AM CDT Pulse 76 03/19/2019 8:16 AM CDT Temperature - - Respiratory Rate - - Oxygen Saturation 99% 03/19/2019 8:16 AM CDT Inhaled Oxygen Concentration - - Weight 82.5 kg (181 lb 12.8 oz) 03/19/2019 8:16 AM CDT Height 180.3 cm (5' 11 ) 03/19/2019 8:16 AM CDT Body Mass Index 25.36 03/19/2019 8:16 AM CDT Plan of Treatment Not on file Insurance [facility] [place] [address] [place] [id number] [facility] H[facility]/PPO Address: [address] [address] [place] [address] [facility] H[facility]/PPO Address: [address] [address] [place] [address] Care Teams Show Card Writer Relationship Specialty Start Date End Date Ebony Rawls MD [address] [place] [id number] PCP - General 10/10/17
--- OUTSIDE RECORDS SUMMARY | 2024-07-08 22:55 | XMS_ITS | Referral Summary ---
Author Organization [facility] Address [address] [place] [address] Care Team Providers Care Shuttle Threader Name Role Phone Ebony Rawls MD Primary [...] Polysaccharide PPV23 2000 Tdap 11/06/2011 Varicella 11/06/2011,04/28/2001 Social History Tobacco Use Types Packs/Day Years Used Date Smoking Tobacco: Never Smokeless Tobacco: Never Personal Safety Answer Date Recorded Getting School Help Needed Not on file 08/29 Comments Unknown Sex and Gender Information Value Date Recorded Sex Assigned at Not on file Legal Sex Female 2:37 AM CARDIAC MONITOR Gender Identity Not on file Sexual Orientation Not on file Last Filed Vital Signs Vital Sign Reading [...] Plan of Treatment Not on file Insurance [facility] CHO[facility] CHOICE PLUS Care Teams Shuttle Threader Relationship Specialty Start Date End Date Ebony Rawls MD [address] [place] [address] PCP - General 10/10/17
== END 2024-07-07 10:36 | disposition home or self-care (01) ==
PROVIDERS: Emergency Provider Nurse Practitioner Family; Referring Provider Family Medicine
DX: J01.90 Acute sinusitis, unspecified (principal); J45.909 Unspecified asthma, uncomplicated
CPT/HCPCS: 99213; G0463

== ENCOUNTER 2024-07-27 10:35 | Emergency (ER) | payer OTHER, SELFPAY ==
[2024-07-27 10:53] VITALS: BP 143/75; PULSE 85; RESP 18; TEMP 36.2; O2SAT 100
--- NOTE | 2024-07-27 11:06 | ED_ITS ---
HPI - URI/Sore Throat General Chief Complaint: Upper Respiratory Infection Stated Complaint: sinus Time Seen by Provider: 07/27/24 11:07 Source: patient, RN notes reviewed and old records reviewed Mode of arrival: ambulatory Limitations: no limitations History of Present Illness HPI Narrative: 24-year-old female presents to the [facility] with a 3 day history body aches, cough, congestion. 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 Onset (ago): day(s) (3) Related Data Home Medications ?Medication ?Instructions ?Recorded ?Confirmed ?Last Taken ?Type levonorgestrel 17.5 mcg/24 hr (up 1 device intrauterine ONCE 09/28/23 09/28/23 Unknown History to 5 yrs) 19.5mg intrauterine device (Kyleena) Allergies Allergy/AdvReac Type Severity Reaction Status Date / Time No Known Allergies Allergy Unknown Verified 07/27/24 10:39 Review of Systems Review of Systems: All systems reviewed & are unremarkable except as noted in HPI and below Constitutional: Constitutional: Reports as per HPI and Reports body ache(s) ENT: Reports nasal congestion Cardiovascular: Cardiovascular: Reports no additional cardiovascular complaints, Denies chest pain and Denies dyspnea Respiratory: Respiratory: Reports no additional respiratory complaints, Denies chest congestion, Denies cough and Denies dyspnea Musculoskeletal: Musculoskeletal: Reports no additional musculoskeletal complaints Integumentary/Breasts: Skin/Breast: Reports system reviewed and no additional complaints, except as docu PMFSH Past Medical History Medical History Asthma Surgical History Surgical History Hx of tympanostomy tubes Family History Family History Father Family history of hypercholesterolemia Depression Hypertension Family history of alcoholism Social History Social History Smoking status: Never smoker Alcohol intake: never Substance use: never Living arrangements: with family Occupation/Education: occupation Gender identity (if verbalized by the patient): Female Comments At the time of my signature, I reviewed and agree with the nursing past medical, surgical, social, and family history. There is no relevant family history pertinent to the patient complaint. Exam Const: General: cooperative, healthy appearing, comfortable, no acute distress, well developed, alert and well nourished Nutritional Appearance: well nourished Orientation/consciousness: patient oriented x3 Limitations: no limitations HENMT: Head: normal to inspection Ears: hearing grossly normal bilaterally, external ears normal, TM's normal bilaterally, EAC's normal, mastoids normal and no periauricular adenopathy Face/Nose/Sinus: Normal external nose present, Normal nares present, No nasal discharge present, normal facial exam and sinuses nontender Mouth: Yes Normal oral and palatal mucosa present, Yes lip normal, Yes tongue normal and Yes moist mucous membranes Throat: posterior oropharynx normal, uvula midline and no uvular edema Eyes: General: appearance normal, both eyes and all related structures Alignment and Position: alignment normal Neck: Neck: normal visual inspection, full ROM, no lymphadenopathy and no meningeal signs Chest: Chest palpation & inspection: normal inspection of the chest Resp: Effort & Inspection: normal respiratory effort and able to speak in complete sentences Auscultation: clear to auscultation bilaterally, no crackles, no rales, no rhonchi and no wheezes Cardio: Rate: regular rate Skin: General skin exam: normal color and no rashes or lesions noted Neuro: General: patient oriented x3, gait normal, moves all extremities and no meningeal signs Cognition (Neuro): normal cognition Speech: normal speech Gait exam (Neuro): Normal gait present Extrem: General: normal to inspection, full ROM, capillary refill normal and normal gait Psych: Appearance: grossly normal and well kempt Mental Status: mental status grossly normal Speech and movement: Normal speech and movement present and Clear speech present Affect: normal affect Attitude: cooperative Course Course Level of Care: Express Care Visit Vital Signs Vital signs: Vital Signs Temperature 97.1 F L 07/27/24 10:53 Pulse Rate 85 07/27/24 10:53 Respiratory Rate 18 07/27/24 10:53 Blood Pressure 143/75 H 07/27/24 10:53 Pulse Oximetry 100 07/27/24 10:53 Oxygen Delivery Room Air 07/27/24 10:53 Temperature 97.1 F L 07/27/24 10:53 Pulse Rate 85 07/27/24 10:53 Respiratory Rate 18 07/27/24 10:53 Blood Pressure 143/75 H 07/27/24 10:53 Pulse Oximetry 100 07/27/24 10:53 Oxygen Delivery Room Air 07/27/24 10:53 Reviewed MDM - URI/Sore Throat MDM Narrative Medical decision making narrative: Patient sitting in exam room. Nontoxic, vitals stable. Patient in no acute distress. Patient presents with a 3 day history of viral URI symptoms. Patient is flu and COVID negative. Patient verbalized concerns for RSV, explained to her that we do not test for RSV in adults in this clinic. Exam no acute findings noted Patient appropriate for outpatient treatment Lab Data Labs: Lab Results 07/27/24 Range/Units 11:19 POC Influenza A Ag Negative (Negative) POC Influenza B Ag Negative (Negative) POC SARS CoV-2 Ag Negative (Negative) Reviewed Critical Care Time Critical Care Time Critical Care Time: No Discharge Plan Discharge Clinical Impression: Upper respiratory infection, viral Patient Disposition: Home, Self-Care Condition: Stable Instructions: Antibiotic Form, Upper Respiratory Infection (DC) Additional Instructions: Your rapid COVID test were negative Your rapid flu test was negative If you are having a hard time finding a physician please call our [facility] liaison at [phone]. Your symptoms are likely due to a viral illness, which is not treated with antibiotics. Typically viral infections last 7-10 days, can linger for couple of weeks. It is very important to treat your symptoms. Drink plenty of water, Gatorade, Pedialyte, ice pops or Jell-O. -Alternate Tylenol and Motrin per package directions for fever or pain. You can alternate every 4 hours -Antihistamine medication such as Zyrtec/Claritin/Phyllis during the day can help improve symptoms. -doing daily nasal irrigations can help relieve pressure your sinuses. Things like a Neti pot, NeilMed saline irrigation -Use Flonase twice a day for 5 days then daily to help reduce the inflammation and dry up your sinuses. -You can also use Mucinex. Be sure to drink plenty of water with this medication at least 8 ounces with every dose and it is important to drink 8 to 10 glasses of water per day. Water is a natural decongestant -Eat and drink things that are easy to swallow, like tea or soup, or popsicles. -Oral rinses such as: Salt water gargles and/or may use topical anesthetic (eg. Chloraseptic spray) or lozenges to relieve dryness or throat pain). -Frequent hand washing or hand waterproof bag cutting machine operator is one of the best ways to prevent spread of infection. -Using a vaporizer or humidifier at night will also help thin secretions and help with coughing up phlegm. -Follow up with primary care provider in 7-10 days if condition is not improving - For new or worsening symptoms go directly to the nearest ER Patient Language: Somali Prescriptions: No Action Kyleena 17.5 mcg/24 hrs (5 yrs) 19.5 mg Intrauterine Device 1 device INTRAUTERINE ONCE Rx Instructions: as a single dose benzonatate 200 mg capsule 200 mg PO TID PRN (Reason: cough) Qty: 20 0RF methylprednisolone [Medrol (Daniel)] 4 mg tablets,dose pack See Rx Instructions PO .COMPLEX Qty: 21 0RF Rx Instructions: orally per package directions amoxicillin-pot clavulanate 875-125 mg tablet 1 tablet PO Q12H 7 Days Qty: 14 0RF Follow-up/Referrals: PHYSICIAN,INKING MACHINE TENDER [Primary Care Provider] - Stand Alone Forms: Work/School Release IP Time of Disposition: 11:13
[2024-07-27 11:21] LABS: EDCOVIDSCREEN Negative (Negative); EDINFLUASCREEN Negative (Negative); EDINFLUBSCREEN Negative (Negative)
--- OUTSIDE RECORDS SUMMARY | 2024-07-27 11:52 | XMS_ITS | Referral Summary ---
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
--- OUTSIDE RECORDS SUMMARY | 2024-07-27 11:52 | XMS_ITS | Clinical Summary ---
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
== END 2024-07-27 11:18 | disposition home or self-care (01) ==
PROVIDERS: Emergency Provider Nurse Practitioner
DX: J06.9 Acute upper respiratory infection, unspecified (principal); Z20.822 Contact with and (suspected) exposure to COVID-19; J45.909 Unspecified asthma, uncomplicated
CPT/HCPCS: 87426; 87804; 99212; G0463

== ENCOUNTER 2025-02-22 10:53 | Emergency (ER) | payer OTHER, SELFPAY ==
[2025-02-22 11:00] VITALS: BP 121/78; PULSE 83; RESP 18; TEMP 35.8; O2SAT 100
--- NOTE | 2025-02-22 11:16 | ED.URI ---
HPI - URI/Sore Throat General Chief Complaint: Upper Respiratory Infection Stated Complaint: Head Pain Time Seen by Provider: 02/22/25 11:14 Source: patient, RN notes reviewed and old records reviewed Mode of arrival: ambulatory Limitations: no limitations History of Present Illness HPI Narrative: 24 year old female who presents to [facility] care with complaints of having headache since Friday feeling hot and cold. Patient reports that yesterday she started with sinus congestion and drainage and fevers around 99F. Patient reports no cough, denies any body aches or any nausea vomiting or diarrhea. 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 Patient admits to scratchy throat but denies any acute pain with swallowing. She states that she has been taking Tylenol for her symptoms. MD elicited complaint: fever (low grades), sore throat (scratchy), rhinorrhea, nasal congestion and other (headache) Onset (ago): day(s) (4 days) Consistency: progressively worsening Pain scale (0-10): 8 Able to tolerate fluids by mouth: Yes Treatments prior to arrival: acetaminophen Related Data Home Medications ?Medication ?Instructions ?Recorded ?Confirmed ?Last Taken ?Type levonorgestrel 17.5 mcg/24 hr (up 1 device intrauterine ONCE 09/28/23 02/22/25 Unknown History to 5 yrs) 19.5mg intrauterine device (Kyleena) Allergies Allergy/AdvReac Type Severity Reaction Status Date / Time No Known Allergies Allergy Unknown Verified 02/22/25 11:05 Review of Systems Review of Systems: CONSTITUTIONAL: reports malaise, chills, sweats, fevers reported around 99F. EYES: Denies visual changes, redness, or discharge. ENT: Reports rhinorrhea, congestion, sinus pressure, no otalgia and scratchy sore throat. CARDIOVASCULAR: Denies chest pain, palpitations, or edema. RESPIRATORY: Reports no cough.? Denies dyspnea. GASTROINTESTINAL: Denies abdominal pain, nausea, vomiting, diarrhea SKIN: Denies rash or itching. MUSCULOSKELETAL: Denies myalgia. NEUROLOGIC: Reports headache. All systems reviewed & are unremarkable except as noted in HPI and below PMFSH Past Medical History Medical History Asthma Surgical History Surgical History Hx of tympanostomy tubes Family History Family History Father Family history of hypercholesterolemia Depression Hypertension Family history of alcoholism Social History Social History Smoking status: Never smoker Alcohol intake: never Substance use: never Living arrangements: with family Occupation/Education: occupation Gender identity (if verbalized by the patient): Female Comments At time of signature, agree with nursing past medical, surgical, social and family history. There is no relevant family history pertinent to the presenting complaint Exam Narrative: GENERAL: Well-appearing, well-nourished, and in no acute distress. HEAD: Normocephalic EYES: PERRLA, conjunctivae clear ENT: Nares clear, turbinates edematous and erythematous, clear discharge. Mucous membranes moist. TM pearly erazo with dull light reflex bilaterally; no tragal tenderness. Oropharynx erythematous without lesions. Tonsils red enlarged and without exudate, no drooling, no hoarseness, no trismus, uvula midline, post nasal drainage. NECK: Supple. No lymphadenopathy CHEST: Clear to auscultation, breath sounds equal. No wheezing, rhonchi, rales, or stridor. No respiratory distress, speaks in full sentences.no cough noted.SAO2 100% on room air HEART: Regular rate and rhythm. No murmur heard. SKIN: Warm, dry, no rash. NEURO: Alert and oriented x3. no nystagmus, generalized headaches verbalized, gait steady PSYCH: Normal mood and affect Course Course Emergency Course: Patient is aware of diagnosis, understands and agrees to treatment plan.? Anticipatory guidance given.? Patient agrees to follow-up as directed and is aware of reasons to seek care at the emergency department. Portions of this record may have been created with voice recognition software Level of Care: Express Care Visit Vital Signs Vital signs: Vital Signs Temperature 35.8 C L 02/22/25 11:00 Pulse Rate 83 02/22/25 11:00 Respiratory Rate 18 02/22/25 11:00 Blood Pressure 121/78 02/22/25 11:00 Pulse Oximetry 100 02/22/25 11:00 Oxygen Delivery Room Air 02/22/25 11:00 Temperature 35.8 C L 02/22/25 11:00 Pulse Rate 83 02/22/25 11:00 Respiratory Rate 18 02/22/25 11:00 Blood Pressure 121/78 02/22/25 11:00 Pulse Oximetry 100 02/22/25 11:00 Oxygen Delivery Room Air 02/22/25 11:00 Reviewed MDM - URI/Sore Throat MDM Narrative Medical decision making narrative: Differential diagnosis considered: Gomez virus, strep pharyngitis, allergic rhinitis, upper respiratory tract infection, sinusitis, rhinosinusitis, nasopharyngitis. viral pharyngitis, otitis media, otitis externa, pneumonia, bronchitis, viral cough syndrome, viral syndrome, and influenza.? Exam findings show no acute concerns or changes; patient is non-toxic appearing and is in no distress.? Patient is appropriate for outpatient treatment and follow-up. Differential Diagnosis Differential diagnosis: Likely upper respiratory infection, sinusitis, viral infection, pharyngitis and other (strep pharyngitis, COVID) Medical Records Attestation: I reviewed the patient's medical records. Lab Data Attestation: I reviewed the patient's lab results. Lab results narrative: strep screen negative, culture sent COVID antigen negative. Labs: Lab Results 02/22/25 02/22/25 Range/Units 11:27 11:41 POC SARS CoV-2 Ag Negative (Negative) POC Grp A Strep Screen Negative (Negative) Critical Care Time Critical Care Time Critical Care Time: No Discharge Plan Discharge Clinical Impression: URI, acute Patient Disposition: Home Condition: Stable Instructions: Upper Respiratory Infection (ED), Acute Headache (ED) Additional Instructions: Increase fluids especially juices and water [id number] cough and cold medicine of your choice for your symptoms Prescription cough medicine as directed--caution drowsiness and no driving or alcohol Tylenol and Motrin alternating for any pain Zyrtec, Claritin or Phyllis daily include plain Sudafed in am as decongestant heat to the face 20-30 minutes 4-6 times a day for pain Salt water gargles, throat lozenges or throat sprays as desired Your strep test today was negative. A throat culture will be sent to the laboratory for further testing. IF the test is positive, you will receive a phone call within 48 hours and an appropriate antibiotic will be initiated at that time. If your symptoms persist, change or worsen significantly before you can contact your personal physician then please, without delay, go to the emergency department for further evaluation. Follow-up with PCP in 7-10 days or sooner if needed Patient Language: British Prescriptions: No Action Kyleena 17.5 mcg/24 hrs (5 yrs) 19.5 mg Intrauterine Device 1 device INTRAUTERINE ONCE Rx Instructions: as a single dose Follow-up/Referrals: Aneesh Parks MD [Primary Care Provider, Family Practice] Stand Alone Forms: Work/School Release IP Time of Disposition: 11:54 Quality [place] Coma Scale Eyes: Open Verbal: Oriented and Alert Motor: Follows Commands Pramod Coma Total Score: 15
[2025-02-22 11:29] LABS: EDCOVIDSCREEN Negative (Negative)
[2025-02-22 11:44] LABS: EDSTREPNEGPOS1 Negative (Negative)
--- OUTSIDE RECORDS SUMMARY | 2025-02-22 12:44 | XMS_ITS | Clinical Summary ---
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
== END 2025-02-22 11:55 | disposition home or self-care (01) ==
PROVIDERS: Emergency Provider Registered Nurse; PCP Family Medicine
DX: J06.9 Acute upper respiratory infection, unspecified (principal); Z20.822 Contact with and (suspected) exposure to COVID-19; J45.909 Unspecified asthma, uncomplicated
CPT/HCPCS: 87081; 87426; 87880; 99213; G0463